=== PATIENT | male | born 1965 | race Caucasian/White ===

== ENCOUNTER 2019-05-05 04:36 | Emergency (ER) | payer SELFPAY ==
[~2019-05-05] VITALS: Ht 175 cm; Wt 113.0 kg
[2019-05-05] MEDS ORDERED: ASPIRIN 81 MG CHEW (CHILDREN'S ASA) PO ONE (05:00)
[2019-05-05 05:04] LABS: BASOPHILS % (AUTO) 0 % (0-10); EOSINOPHILS # (AUTO) 0.1 10^3/uL (0.0-0.3); EOSINOPHILS % (AUTO) 1 % (0-10); HEMATOCRIT 45 % (40-54); HEMOGLOBIN 15.1 G/DL (13.3-17.7); LYMPHOCYTES # (AUTO) 1.8 X 10^3 (1.0-4.0); LYMPHOCYTES % (AUTO) 39 % (12-44); MEAN CORPUSCULAR HEMOGLOBIN 32 PG (25-34); MEAN CORPUSCULAR HGB CONC 34 G/DL (32-36); MEAN CORPUSCULAR VOLUME 95 FL (80-99); MEAN PLATELET VOLUME 8.4 FL (7.4-10.4); MONOCYTES # (AUTO) 0.5 X 10^3 (0.0-1.0); MONOCYTES % (AUTO) 11 % (0-12); NEUTROPHILS # (AUTO) 2.2 X 10^3 (1.8-7.8); NEUTROPHILS % (AUTO) 48 % (42-75); PLATELET COUNT 178 10^3/uL (130-400); RED CELL DISTRIBUTION WIDTH 13.7 % (10.0-14.5); WHITE BLOOD COUNT 4.6 10^3/uL (4.3-11.0)
--- NOTE | 2019-05-05 05:14 | ED Chest Pain ---
General Chief Complaint: Chest Pain Stated Complaint: CHEST PAIN Source: patient Exam Limitations: no limitations (TAYLOR GREGORY MD) History of Present Illness Date Seen by Provider: May 05, 2019 Time Seen by Provider: 04:41 Initial Comments Here with report of chest pain that is central but also in the left upper order and left lateral abdominal area. Has nausea but no vomiting. No report of blood in his vomit or stool. Drinks about a pint of whiskey every 2 weeks. Does smoke cigarettes. Is having intermittent shortness of breath. Never had pain like this before. Timing/Duration: getting worse, changing over time, intermittent, 1-2 days Severity/Quality: moderate, pressure Location: central Radiation: other Activities at Onset: none (abdomen) Prior CP/Workup: no prior chest pain Modifying Factors: improves with oxygen ASA po NET REPAIRER: No NTG SL NET REPAIRER: Yes Associated Symptoms: No back pain, No fever/chills; nausea/vomiting, shortness of breath, weakness (TAYLOR GREGORY MD) Allergies and Home Medications Allergies Coded Allergies: Influenza Virus Vaccines (Verified Allergy, Unknown, 05/05/19) Penicillins (Verified Allergy, Unknown, 05/05/19) Patient Home Medication List Home Medication List Reviewed: Yes (TAYLRO GREGORY MD) Review of Systems Review of Systems Constitutional: see HPI; No chills, No fever EENTM: No Symptoms Reported Respiratory: See HPI Cardiovascular: See HPI, Chest Pain; Denies Edema, Denies Irregular Heart Rate Gastrointestinal: See HPI, Abdominal Pain; Denies Diarrhea Genitourinary: No Symptoms Reported Musculoskeletal: muscle pain; No muscle stiffness Skin: no symptoms reported Psychiatric/Neurological: No Symptoms Reported Endocrine: No Symptoms Reported (TAYLOR GREGORY MD) All Other Systems Reviewed Negative Unless Noted: Yes (TAYLOR GREGORY MD) Past [facility] Hx Past Med/Social Hx: Reviewed Nursing Past Med/Soc Hx (TAYLOR GREGORY MD) Patient Social History Alcohol Use: Occasionally Uses Alcohol Beverage of Choice: Whiskey Smoking Status: Current Everyday Smoker (TAYLOR GREGORY MD) Past Medical History Surgeries: No Cardiac: Yes Hypertension Neurological: No Genitourinary: No Gastrointestinal: No Cancer: No (TAYLOR GREGORY MD) Family Medical History No Pertinent Family Hx (TAYLOR GREGORY MD) Physical Exam Vital Signs Vital Signs - First Documented 05/05/19 04:36 Temp 37.1 Pulse 77 Resp 20 B/P (MAP) 150/92 (111) O2 Delivery Room Air (JACOB LUCIO MD) Vital Signs Capillary Refill : (TAYLOR GREGORY MD) Height, Weight, BMI Height: '" Weight: lbs. oz. kg; BMI Method: General Appearance: No Apparent Distress, WD/WN HEENT: PERRL/EOMI, Pharynx Normal Neck: Non Tender, Supple Respiratory: Lungs Clear, Normal Breath Sounds Cardiovascular: Regular Rate, Rhythm, No Edema, No Gallop, No Murmur Gastrointestinal: Soft, Tenderness (left upper quadrant, left lateral quadrant, epigastric pain) Extremity: Normal Range of Motion, Non Tender Neurologic/Psychiatric: Alert, Oriented x3 Skin: Normal Color, Warm/Dry (TAYLOR GREGORY MD) Progress/Results/Core Measures Results/Orders Lab Results Laboratory Tests Test 05/05/19 04:57 05/05/19 07:09 Range/Units White Blood Count 4.6 4.3-11.0 10^3/uL Red Blood Count 4.69 4.35-5.85 10^6/uL Hemoglobin 15.1 13.3-17.7 G/DL Hematocrit 45 40-54 % Mean Corpuscular Volume 95 80-99 FL Mean Corpuscular Hemoglobin 32 25-34 PG Mean Corpuscular Hemoglobin Concent 34 32-36 G/DL Red Cell Distribution Width 13.7 10.0-14.5 % Platelet Count 178 130-400 10^3/uL Mean Platelet Volume 8.4 7.4-10.4 FL Neutrophils (%) (Auto) 48 42-75 % Lymphocytes (%) (Auto) 39 12-44 % Monocytes (%) (Auto) 11 0-12 % Eosinophils (%) (Auto) 1 0-10 % Basophils (%) (Auto) 0 0-10 % Neutrophils # (Auto) 2.2 1.8-7.8 X 10^3 Lymphocytes # (Auto) 1.8 1.0-4.0 X 10^3 Monocytes # (Auto) 0.5 0.0-1.0 X 10^3 Eosinophils # (Auto) 0.1 0.0-0.3 10^3/uL Basophils # (Auto) 0.0 0.0-0.1 10^3/uL Prothrombin Time 12.2 12.2-14.7 SEC INR Comment 0.9 0.8-1.4 Activated Partial Thromboplast Time 40 H 24-35 SEC D-Dimer 0.37 0.00-0.49 UG/ML Sodium Level 144 135-145 MMOL/L Potassium Level 4.1 3.6-5.0 MMOL/L Chloride Level 109 H 98-107 MMOL/L Carbon Dioxide Level 22 21-32 MMOL/L Anion Gap 13 5-14 MMOL/L Blood Urea Nitrogen 16 7-18 MG/DL Creatinine 0.88 0.60-1.30 MG/DL Estimat Glomerular Filtration Rate > 60 BUN/Creatinine Ratio 18 Glucose Level 99 70-105 MG/DL Calcium Level 8.8 8.5-10.1 MG/DL Corrected Calcium 8.4 L 8.5-10.1 MG/DL Magnesium Level 2.5 H 1.6-2.4 MG/DL Total Bilirubin 0.2 0.1-1.0 MG/DL Aspartate Amino Transf (AST/SGOT) 24 5-34 U/L Alanine Aminotransferase (ALT/SGPT) 21 0-55 U/L Alkaline Phosphatase 67 40-136 U/L Myoglobin 29.4 10.0-92.0 NG/ML Troponin I < 0.028 < 0.028 <0.028 NG/ML Total Protein 7.2 6.4-8.2 GM/DL Albumin 4.5 3.2-4.5 GM/DL Amylase Level 78 25-125 U/L Lipase 48 8-78 U/L (JACOB LUCIO MD) Medications Given in ED Current Medications Medications Dose Ordered Sig/Yany Route Start Time Stop Time Status Last Admin Dose Admin Aspirin 324 mg ONCE ONCE PO 05/05/19 05:00 05/05/19 05:01 DC 05/05/19 04:59 324 MG Iohexol 100 ml ONCE ONCE IV 05/05/19 06:45 05/05/19 06:46 DC 05/05/19 06:33 100 ML Sodium Chloride 100 ml ONCE ONCE IV 05/05/19 06:45 05/05/19 06:46 DC 05/05/19 06:33 80 ML Sodium Chloride 1,000 ml @ 0 mls/hr Q0M ONCE IV 05/05/19 06:39 05/05/19 06:40 DC 05/05/19 06:51 999 MLS/HR (JACOB LUCIO MD) Vital Signs/I&O 05/05/19 05/05/19 04:36 04:36 Temp 37.1 Pulse 77 Resp 20 B/P (MAP) 150/92 (111) O2 Delivery Room Air (JACOB LUCIO MD) Progress Progress Note : Progress Note Seen and evaluated. IV, labs, EKG and chest x-ray ordered. ASA 324 mg by mouth. We will hold the nitros as that did not seem to help earlier. EKG does not show any significant abnormality. Monitor patient. CT abdomen and pelvis with contrast ordered due to pain and feeling of mass especially on the left side. Monitor patient. 0640: Normal saline 1 L bolus. Initial evaluation with respect to labs is negative. CT pending. Initial troponin negative as well as d-dimer. We will go ahead and recheck troponin at the 2 are marked for rule out. Patient is wanting to go home and is overall feeling better. Care transferred to Dr. Lucio pending final CT reading and repeat troponin. (TAYLOR GREGORY MD) Progress Note : Time: 08:19 Progress Note Patient's repeat troponin was normal. The patient wants to follow-up with Dr. Ramon Rivera at [facility] in [place]. I recommended the patient return if he had any further problems or questions. I asked that he call Dr. Rivera's office on Monday for close follow-up. (JACOB LUCIO MD) Initial ECG Impression Date: May 05, 2019 Initial ECG Impression Time: 04:44 Initial ECG Rate: 65 Initial ECG Rhythm: Normal Sinus Initial ECG Impression: Nonspecific Changes Comment Sinus rhythm with normal axis. No evidence of ST elevation GA. No previous available for comparison. Interpreted by me. (TAYLOR GREGORY MD) Diagnostic Imaging Diagonstic Imaging: Xray Plain Films/CT/US/NM/MRI: chest Comments No acute findings. Reviewed: Reviewed by Me Diagonstic Imaging: CT Plain Films/CT/US/NM/MRI: abdomen, pelvis (TAYLOR GREGORY MD) Departure Impression Primary Impression: Chest pain Qualified Codes: R07.9 - Chest pain, unspecified Disposition: HOME, SELF-CARE Condition: Improved Departure-Patient Inst. Decision time for Depature: 08:22 (JACOB LUCIO MD) Patient Instructions: Chest Pain Add. Discharge Instructions: Close follow-up with Dr. Ramon Rivera at [facility] in [place]. Please call his office Monday morning for close follow-up. Nitroglycerin under your tongue if chest pain recurs. Come back to the emergency department if you have any further episodes of chest pain. All discharge instructions reviewed with patient and/or family. Voiced understanding. Scripts Nitroglycerin (Nitroglycerin) 0.4 Mg Tab.subl 0.4 MG SL UD for Chest Pain, #60 TAB Prov: JACOB LUCIO MD 05/05/19 TAYLOR GREGORY MD May 05, 2019 05:14 POSJACOB LUCIO MD May 05, 2019 08:24 POS
[2019-05-05 05:15] LABS: INR 0.9 (0.8-1.4); PROTHROMBIN TIME PATIENT 12.2 SEC (12.2-14.7)
[2019-05-05 05:22] LABS: ALANINE AMINOTRANSFERASE 21 U/L (0-55); ALBUMIN 4.5 GM/DL (3.2-4.5); ALKALINE PHOSPHATASE 67 U/L (40-136); AMYLASE 78 U/L (25-125); BILIRUBIN,TOTAL 0.2 MG/DL (0.1-1.0); BUN/CREATININE RATIO 18; CALCIUM 8.8 MG/DL (8.5-10.1); CARBON DIOXIDE 22 MMOL/L (21-32); CHLORIDE 109 MMOL/L (98-107); CREATININE SERUM 0.88 MG/DL (0.60-1.30); GFR ESTIMATED > 60; GLUCOSE 99 MG/DL (70-105); MAGNESIUM 2.5 MG/DL (1.6-2.4); POTASSIUM 4.1 MMOL/L (3.6-5.0); SODIUM 144 MMOL/L (135-145); TOTAL PROTEIN 7.2 GM/DL (6.4-8.2)
[2019-05-05 05:23] LABS: LIPASE 48 U/L (8-78)
[2019-05-05] MEDS ORDERED: NS IV 1000 ML 1,000 ML IV ONE (06:39)
[2019-05-05] MEDS ORDERED: HOLD METFORMIN - RECEIVED CONTRAST 20 ML VIAL IV SCH (06:45)
[2019-05-05] MEDS ORDERED: NS 100 ML (IVPB) BAG IV ONE (06:45)
[2019-05-05] MEDS ORDERED: IOHEXOL 350 MG/ML 100 ML (OMNIPAQUE 350) VIAL IV ONE (06:45)
--- NOTE | 2019-05-05 06:55 | NUR ---
DR GREGORY IN ROOM TALKING TO THE PT ABOUT THE NEED NOT TO CUSS AT THE NURSES.
--- NOTE | 2019-05-05 06:55 | NUR ---
ASSUMED CARE OF PT.
--- NOTE | 2019-05-05 07:17 | Diagnostic Imaging Report ---
Clinical indications: Patient with abdominal pain and chest pain. Exam: CT scan of the abdomen and pelvis performed with 100 mL of Omnipaque 350 IV contrast. Coronal and sagittal reformatted images are created. Auto Exposure Controls were utilized during the CT exam to meet ALARA standards for radiation dose reduction. Comparison: None. Findings: There is mild atelectasis involving the posterior aspect of the right lung base. There is sclerosis and curvilinear opacities with lucency involving the right femoral head region with mild subchondral collapse related to AVN. There is also slight sclerosis of the upper anterior aspect of the left femoral head which may represent mild changes of AVN. There is severe joint space narrowing of the right hip with hypertrophic spurs involving the right hip related to secondary degenerative changes. There are lumbar spine degenerative spurs seen. The liver, spleen, pancreas, gallbladder, adrenal glands are unremarkable. There is a 2 mm nonobstructive stone involving the inferior pole of the left kidney which is best seen on coronal reformatted sequences. Otherwise, both kidneys are unremarkable with no other stones, hydronephrosis, or mass. There is no intra-abdominal free air or free fluid. Bladder is fluid-filled and unremarkable. There is diverticulosis involving the sigmoid colon and descending colon with no CT evidence of diverticulitis. Appendix is unremarkable. There is no intra-abdominal lymphadenopathy. There is no intestinal obstruction. The extra abdominal and extrapelvic soft tissue structures are unremarkable. Impression: 1: There is no CT evidence of acute abdominal or pelvic process. 2: Nonobstructive left nephrolithiasis. 3: Diverticulosis with no CT evidence of diverticulitis. 4: Bilateral hip findings concerning for avascular necrosis (right side more than the left). There are also severe degenerative changes of the right hip. Dictated by: Dictated on workstation # [id number]
--- NOTE | 2019-05-05 07:51 | Diagnostic Imaging Report ---
CLINICAL INDICATION: Patient with chest pain. EXAM: Portable chest x-ray upright view. COMPARISONS: None. FINDINGS: Lungs/pleura: There is minimal atelectasis in right lung base. Otherwise, lungs are clear. There is no pneumothorax. There is no pleural effusion. Mediastinum: Unremarkable. Pulmonary vasculature: Unremarkable. Heart: Unremarkable. Bones/extrathoracic soft tissue: There are degenerative spurs involving the thoracic spine. IMPRESSION: Minimal right lung base atelectasis. Otherwise, there is no radiographic evidence of acute cardiopulmonary process. Dictated by: Dictated on workstation # [id number]
[2019-05-05] MEDS ORDERED: NITR0.4T39 SL (08:24)
[2019-05-05 08:29] VITALS: BP 138/91
--- OUTSIDE RECORDS SUMMARY | 2019-05-30 17:00 | XMS REPORT | Continuity of Care Document ---
Author Organization Unknown Address Unknown Phone Unavailable Allergies Active Description Code Type Severity Reaction Onset Reported/Identified Relationship to Patient Clinical Status Yes Influenza Virus Vaccines [id number] Drug Allergy Unknown N/A 05/05/2019 Yes Penicillins [id number] Drug Aller gy Unknown N/A 05/05/2019 Medications There is no data. Problems Date Dx Coded Attending Type Code Diagnosis Diagnosed By 05/05/2019 JACOB MOYA MD Ot F17.200 NICOTINE DEPENDENCE, UNSPECIFIED, UNCOMP 05/05/2019 JACOB MOYA MD Ot I10 ESSENTIAL (PRIMARY) HYPERTENSION 05/05/2019 JACOB MOYA MD Ot R07. 89 OTHER CHEST PAIN 05/05/2019 JACOB MOYA MD Ot R07. 9 CHEST PAIN, UNSPECIFIED 05/05/2019 JACOB MOYA MD Ot Z88. 0 ALLERGY STATUS TO PENICILLIN 05/05/2019 JACOB MOYA MD Ot Z88. 7 ALLERGY STATUS TO SERUM AND VACCINE STAT 05/08/2019 JACOB MOYA MD Ot F17.200 NICOTINE DEPENDENCE, UNSPECIFIED, UNCOMP 05/08/2019 JACOB MOYA MD Ot I10 ESSENTIAL (PRIMARY) HYPERTENSION 05/08/2019 JACOB MOYA MD Ot R07. 89 OTHER CHEST PAIN 05/08/2019 JACOB MOYA MD Ot R07. 9 CHEST PAIN, UNSPECIFIED 05/08/2019 JACOB MOYA MD Ot Z88. 0 ALLERGY STATUS TO PENICILLIN 05/08/2019 JACOB MOYA MD Ot Z88. 7 ALLERGY STATUS TO SERUM AND VACCINE STAT Procedures There is no data. Results Test Result Range Complete blood count (CBC) with automate d white blood cell (WBC) differential - 05/05/19 04:57 Blood leukocytes automated count (number/volume) 4.6 10*3/uL 4.3-11.0 Blood erythrocytes automated count (number/volume) 4.69 10*6/uL 4.35-5.85 Venous blood hemoglobin measurement (mass/volume) 15.1 g/dL 13.3-17.7 Blood hematocrit (volume fraction) 45 % 40-54 Automated erythrocyte mean corpuscular volume 95 [ foz_us] 80-99 Automated erythrocyte mean corpuscular h emoglobin (mass per erythrocyte) 32 pg 25-34 Automated erythrocyte mean corpuscular h emoglobin concentration measurement (mass/volume) 34 g/dL 32-36 Automated erythrocyte distribution width ratio 13. 7 % 10.0- 14.5 Automated blood platelet count (count/volume) 178 10*3/uL 130-400 Automated blood platelet mean volume measurement 8.4 [foz_us] 7.4-10.4 Automated blood neutrophils/100 leukocytes 48 % 42-75 Automated blood lymphocytes/100 leukocytes 39 % 12-44 Blood monocytes/100 leukocytes 11 % 0-12 Automated blood eosinophils/100 leukocytes 1 % 0-10 Automated blood basophils/100 leukocytes 0 % 0-10 Blood neutrophils automated count (number/volume) 2.2 10*3 1.8-7.8 Blood lymphocytes automated count (number/volume) 1.8 10*3 1.0-4.0 Blood monocytes automated count (number/volume) 0. 5 10*3 0.0-1.0 Automated eosinophil count 0.1 10*3/uL 0 .0-0.3 Automated blood basophil count (count/volume) 0.0 10*3/uL 0.0-0.1 PT panel in platelet poor plasma by coag ulation assay - 05/05/19 04:57 Prothrombin time (PT) in platelet poor plasma by coagu lation assay 12.2 s 12.2-14.7 INR in platelet poor plasma or blood by coagulation as say 0.9 0.8-1.4 Activated partial thromboplastin time (a PTT) in platelet poor plasma bycoagulation assay - 05/05/19 04:57 Activated partial thromboplastin time (a PTT) in platelet poor plasma bycoagulation assay 40 s 24-35 Fibrin D-dimer FEU measurement in platel et poor plasma (mass/volume) - 05/05/19 04:57 Fibrin D-dimer FEU measurement in platelet poor plasma (mass/volume) 0.37 ug/mL 0.00-0.49 Comprehensive metabolic panel - 05/05/19 04:57 Serum or plasma sodium measurement (moles/volume) 144 mmol/L 135-145 Serum or plasma potassium measurement (moles/volume) 4.1 mmol/L 3.6-5.0 Serum or plasma chloride measurement (moles/volume) 109 mmol/L 98-107 Carbon dioxide 22 mmol/L 21-32 Serum or plasma anion gap determination (moles/volume) 13 mmol/L 5-14 Serum or plasma urea nitrogen measurement (mass/volume ) 16 mg/dL 7-18 Serum or plasma creatinine measurement (mass/volume) 0.88 mg/dL 0.60-1.30 Serum or plasma urea nitrogen/creatinine mass ratio 18 NRG Serum or plasma creatinine measurement w ith calculation of estimated glomerular filtration rate > NRG Serum or plasma glucose measurement (mass/volume) 99 mg/dL 70-105 Serum or plasma calcium measurement (mass/volume) 8.8 mg/dL 8.5-10.1 Serum or plasma total bilirubin measurement (mass/volu me) 0.2 mg/dL 0.1-1.0 Serum or plasma alkaline phosphatase farrah surement (enzymatic activity/volume) 67 U/L 40-136 Serum or plasma aspartate aminotransfera se measurement (enzymatic activity/volume) 24 U/L 5-34 Serum or plasma alanine aminotransferase measurement (enzymatic activity/volume) 21 U/L 0-55 Serum or plasma protein measurement (mass/volume) 7.2 g/dL 6.4-8.2 Serum or plasma albumin measurement (mass/volume) 4.5 g/dL 3.2-4.5 CALCIUM CORRECTED 8.4 mg/dL 8.5-10.1 Magnesium - 05/05/19 04:57 Magnesium 2.5 mg/dL 1.6-2.4 Myoglobin, serum - 05/05/19 04:57 Myoglobin, serum 29.4 ng/mL 10.0-92.0 Serum or plasma troponin i.cardiac measu rement (mass/volume) - 05/05/19 04:57 Serum or plasma troponin i.cardiac measurement (mass/v olume) < ng/mL <0.028 Serum or plasma amylase measurement (enz ymatic activity/volume) - 05/05/19 04:57 Serum or plasma amylase measurement (enzymatic activit y/volume) 78 U/L 25-125 Lipase - 05/05/19 04:57 Lipase 48 U/L 8-78 Serum or plasma troponin i.cardiac measu rement (mass/volume) - 05/05/19 07:09 Serum or plasma troponin i.cardiac measurement (mass/v olume) < ng/mL <0.028 Encounters ACCT No. Visit Date/Time Discharge Status Pt. Type Provider Facility Loc./Unit Complaint [id number] 03/14/2019 14:55:00 03/14/2019 23:59: 59 CLS Outpatient [facility] [id number] 05/05/2019 04:38:00 019 08:29:00 DIS Emergency NITA TRUONG, JACOB [facility] ER CHEST PAIN
== END 2019-05-05 08:29 | disposition home or self-care (01) ==
LOC: ER 04:38
DX: R07.89 Other chest pain (principal); I10 Essential (primary) hypertension; F17.200 Nicotine dependence, unspecified, uncomplicated; Z88.7 Allergy status to serum and vaccine; Z88.0 Allergy status to penicillin
CPT/HCPCS: 36415; 71045; 74177; 80053; 82150; 83690; 83735; 83874; 84484; 85025; 85379; 85610; 85730; 93005; 93041; 96360

== ENCOUNTER 2022-08-15 02:51 | Emergency (ER) | payer SELFPAY ==
[~2022-08-15] VITALS: Ht 182 cm; Wt 117.9 kg
[~2022-08-15 02:51] MED LIST: NITR0.4T39 SL
[2022-08-15 03:08] LABS: BASOPHILS # (AUTO) 0.1 10^3/uL (0.0-0.1); BASOPHILS % (AUTO) 1 % (0-10); EOSINOPHILS # (AUTO) 0.1 10^3/uL (0.0-0.3); EOSINOPHILS % (AUTO) 1 % (0-10); HEMATOCRIT 47 % (40-54); HEMOGLOBIN 16.4 g/dL (13.3-17.7); LYMPHOCYTES # (AUTO) 2.1 10^3/uL (1.0-4.0); LYMPHOCYTES % (AUTO) 39 % (12-44); MEAN CORPUSCULAR HEMOGLOBIN 32 pg (25-34); MEAN CORPUSCULAR HGB CONC 35 g/dL (32-36); MEAN CORPUSCULAR VOLUME 92 fL (80-99); MEAN PLATELET VOLUME 8.6 fL (9.0-12.2); MONOCYTES # (AUTO) 0.5 10^3/uL (0.0-1.0); MONOCYTES % (AUTO) 9 % (0-12); NEUTROPHILS # (AUTO) 2.6 10^3/uL (1.8-7.8); NEUTROPHILS % (AUTO) 49 % (42-75); PLATELET COUNT 194 10^3/uL (130-400); WHITE BLOOD COUNT 5.2 10^3/uL (4.3-11.0)
[2022-08-15] MEDS ORDERED: ONDANSETRON 4 MG/2 ML (SDV) Z0FRAN IVP ONE (03:15)
[2022-08-15] MEDS ORDERED: LIDOCAINE 2% VISCOUS 15 ML UDC PO ONE (03:15)
[2022-08-15] MEDS ORDERED: ANTACID SUSP 30 ML UDC (MYLANTA) ONE (03:18)
[2022-08-15 03:19] LABS: ALBUMIN 4.2 GM/DL (3.2-4.5)
[2022-08-15 03:20] LABS: CHLORIDE 109 MMOL/L (98-107); SODIUM 141 MMOL/L (135-145)
[2022-08-15 03:21] LABS: CALCIUM 8.9 MG/DL (8.5-10.1)
[2022-08-15 03:22] LABS: GLUCOSE 138 MG/DL (70-105); TOTAL PROTEIN 7.5 GM/DL (6.4-8.2)
[2022-08-15 03:23] LABS: CARBON DIOXIDE 18 MMOL/L (21-32); FIBRIN DEGRADATION PRODUCTS 0.33 UG/ML (0.00-0.49); INR 0.9 (0.8-1.4); PROTHROMBIN TIME PATIENT 12.4 SEC (12.2-14.7)
[2022-08-15 03:24] LABS: BILIRUBIN,TOTAL 0.3 MG/DL (0.1-1.0)
[2022-08-15 03:25] LABS: ALKALINE PHOSPHATASE 87 U/L (40-136)
[2022-08-15 03:26] LABS: GFR ESTIMATED 78
[2022-08-15 03:27] LABS: BUN/CREATININE RATIO 13
[2022-08-15 03:28] LABS: MAGNESIUM 2.1 MG/DL (1.6-2.4)
[2022-08-15 03:29] LABS: ALANINE AMINOTRANSFERASE 31 U/L (0-55)
[2022-08-15] MEDS ORDERED: ANTACID SUSP 30 ML UDC (MYLANTA) PO ONE (04:00)
--- NOTE | 2022-08-15 04:17 | ED Chest Pain ---
General Chief Complaint: Chest Pain Stated Complaint: CP Nursing Triage Note: PATIENT REPORTS HAVING MID-RT SIDED CHEST PAIN TONIGHTS. STATES SOB AND COUGH. Source: patient Exam Limitations: no limitations History of Present Illness Date Seen by Provider: Aug 15, 2022 Time Seen by Provider: 02:54 Initial Comments This 56-year-old man is brought to the emergency room via EMS with complaints of right sided chest pain, SOA and a couple brief coughing fits. He also has some tenderness in the epigastric region. He denies any fever. Onset of pain was somewhere around 2330. He has no known cardiac pathology. He takes no medications. He also complains of some right lower quadrant abdominal pain for a few weeks that radiates down toward the right scrotum. This started after he was doing some lifting on a trailer. Pain in the right chest was reproducible with palpation for EMS. Allergies and Home Medications Allergies Coded Allergies: Influenza Virus Vaccines (Verified Allergy, Unknown, 05/05/19) Penicillins (Verified Allergy, Unknown, 05/05/19) Patient Home Medication List Home Medication List Reviewed: Yes Nitroglycerin (Nitroglycerin) 0.4 Mg Tab.subl, 0.4 MG SL UD Prescribed by: JACOB MOYA MD on 05/05/19 0824 Review of Systems Review of Systems Constitutional: no symptoms reported EENTM: No Symptoms Reported Respiratory: See HPI Cardiovascular: No Symptoms Reported Gastrointestinal: See HPI Genitourinary: No Symptoms Reported Musculoskeletal: see HPI Skin: no symptoms reported Psychiatric/Neurological: No Symptoms Reported Endocrine: No Symptoms Reported Hematologic/Lymphatic: No Symptoms Reported Past Dseitem-Blhtiz-Hrwjfr Hx Immunizations Up To Date Influenza Vaccine Up-to-Date: Yes; Up-to-Date Past Medical History Surgeries: No Respiratory: No Cardiac: Yes Hypertension Neurological: No Genitourinary: No Gastrointestinal: No Musculoskeletal: No Endocrine: No HEENT: No Cancer: No Psychosocial: No Integumentary: No Family Medical History No Pertinent Family Hx Physical Exam Vital Signs Vital Signs - First Documented 08/15/22 02:53 Pulse 85 Resp 20 B/P (MAP) 150/100 (117) Pulse Ox 95 O2 Delivery Room Air Capillary Refill : Less Than 3 Seconds Height, Weight, BMI Height: '" Weight: lbs. oz. kg; 35.00 BMI Method: General Appearance: WD/WN, Anxious, Obese HEENT: PERRL/EOMI, Normal ENT Inspection Neck: Normal Inspection; No JVD Respiratory: Chest Non Tender, Lungs Clear, Normal Breath Sounds, No Accessory Muscle Use, Other (No wheezing or prolonged expiratory phase with forced expiration) Cardiovascular: Regular Rate, Rhythm, No Edema, No Murmur Gastrointestinal: Normal Bowel Sounds, Soft, Tenderness (Epigastric, mild in the right suprapubic region), Other (Obese abdomen) Genital/Rectal: Tenderness (Mild tenderness at the lower right inguinal canal without obvious hernia or skin changes) Extremity: Normal Inspection, No Pedal Edema Neurologic/Psychiatric: Alert, Oriented x3, No Motor/Sensory Deficits, auto mechanic apprentice II- XII Norm as Tested, Other (Slightly anxious) Skin: Normal Color Progress/Results/Core Measures Results/Orders Lab Results Laboratory Tests Test 08/15/22 02:56 08/15/22 04:47 Range/Units White Blood Count 5.2 4.3-11.0 10^3/uL Red Blood Count 5.15 4.30-5.52 10^6/uL Hemoglobin 16.4 13.3-17.7 g/dL Hematocrit 47 40-54 % Mean Corpuscular Volume 92 80-99 fL Mean Corpuscular Hemoglobin 32 25-34 pg Mean Corpuscular Hemoglobin Concent 35 32-36 g/dL Red Cell Distribution Width 12.5 10.0-14.5 % Platelet Count 194 130-400 10^3/uL Mean Platelet Volume 8.6 L 9.0-12.2 fL Immature Granulocyte % (Auto) 0 % Neutrophils (%) (Auto) 49 42-75 % Lymphocytes (%) (Auto) 39 12-44 % Monocytes (%) (Auto) 9 0-12 % Eosinophils (%) (Auto) 1 0-10 % Basophils (%) (Auto) 1 0-10 % Neutrophils # (Auto) 2.6 1.8-7.8 10^3/uL Lymphocytes # (Auto) 2.1 1.0-4.0 10^3/uL Monocytes # (Auto) 0.5 0.0-1.0 10^3/uL Eosinophils # (Auto) 0.1 0.0-0.3 10^3/uL Basophils # (Auto) 0.1 0.0-0.1 10^3/uL Immature Granulocyte # (Auto) 0.0 0.0-0.1 10^3/uL Prothrombin Time 12.4 12.2-14.7 SEC INR Comment 0.9 0.8-1.4 Activated Partial Thromboplast Time 39 H 24-35 SEC D-Dimer 0.33 0.00-0.49 UG/ML Sodium Level 141 135-145 MMOL/L Potassium Level 4.0 3.6-5.0 MMOL/L Chloride Level 109 H 98-107 MMOL/L Carbon Dioxide Level 18 L 21-32 MMOL/L Anion Gap 14 5-14 MMOL/L Blood Urea Nitrogen 14 7-18 MG/DL Creatinine 1.10 0.60-1.30 MG/DL Estimat Glomerular Filtration Rate 78 BUN/Creatinine Ratio 13 Glucose Level 138 H 70-105 MG/DL Calcium Level 8.9 8.5-10.1 MG/DL Corrected Calcium 8.7 8.5-10.1 MG/DL Magnesium Level 2.1 1.6-2.4 MG/DL Total Bilirubin 0.3 0.1-1.0 MG/DL Aspartate Amino Transf (AST/SGOT) 31 5-34 U/L Alanine Aminotransferase (ALT/SGPT) 31 0-55 U/L Alkaline Phosphatase 87 40-136 U/L Myoglobin 50.9 10.0-92.0 NG/ML Troponin I < 0.028 < 0.028 <0.028 NG/ML B-Type Natriuretic Peptide 64.0 <100.0 PG/ML Total Protein 7.5 6.4-8.2 GM/DL Albumin 4.2 3.2-4.5 GM/DL My Orders Orders - ORALIA VALENTINE MD Cbc With Automated Diff (08/15/22 03:02) Magnesium (08/15/22 03:02) Chest 1 View, Ap/Pa Only (08/15/22 03:02) Ekg Tracing (08/15/22 03:02) Comprehensive Metabolic Panel (08/15/22 03:02) Myoglobin Serum (08/15/22 03:02) Protime With Inr (08/15/22 03:02) Partial Thromboplastin Time (08/15/22 03:02) Monitor-Rhythm Ecg Trace Only (08/15/22 03:02) Lipid Panel (08/16/22 06:00) Ed Iv/Invasive Line Start (08/15/22 03:02) Bnp Oliver (08/15/22 03:02) Ondansetron Injection (Zofran Injectio (08/15/22 03:15) Lidocaine 2% Viscous 15 Ml (Xylocaine Vi (08/15/22 03:15) Fibrin Degradation Products (08/15/22 02:56) Troponin I Yue (08/15/22 02:56) Antacid Suspension (Mylanta Suspension (08/15/22 03:18) Antacid Suspension (Mylanta Suspension (08/15/22 04:00) Troponin I Yue (08/15/22 05:00) Medications Given in ED Current Medications Medications Dose Ordered Sig/Yany Route Start Time Stop Time Status Last Admin Dose Admin Al Hydrox/Mg Hydrox/Simethicone 30 ml STK-MED ONCE .ROUTE 08/15/22 03:18 08/15/22 03:22 DC 08/15/22 03:26 30 ML Lidocaine HCl 15 ml ONCE ONCE PO 08/15/22 03:15 08/15/22 03:16 DC 08/15/22 03:26 15 ML Ondansetron HCl 4 mg ONCE ONCE IVP 08/15/22 03:15 08/15/22 03:16 DC 08/15/22 03:25 4 MG Vital Signs/I&O 08/15/22 02:53 Pulse 85 Resp 20 B/P (MAP) 150/100 (117) Pulse Ox 95 O2 Delivery Room Air Blood Pressure Mean: 117 Progress Progress Note #1: Time: 04:45 Progress Note Patient was interviewed and examined. Initial work-up including CBC, CMP, troponin, magnesium, EKG, and chest x-ray was reviewed in its entirety by me. Additional work-up was unremarkable. A delta troponin is pending. Patient was treated with Zofran and GI cocktail with improvement. Progress Note #2: Time: 05:46 Progress Note Delta troponin was negative. Patient's pain was significantly improved after GI cocktail. He reported some residual pain with tenderness to touch around the right anterior costal margin. Pain seemed more atypical in nature. Discharge instructions were reviewed with patient. Pain seemed atypical in nature and likely, at least in part, GI in origin since it improved with GI cocktail. I did emphasize that his cardiac work-up is not complete with studies performed in the ER, and he needs to establish with a primary care provider soon as possible. Initial ECG Impression Date: Aug 15, 2022 Initial ECG Impression Time: 03:04 Initial ECG Rate: 81 Initial ECG Rhythm: Normal Sinus Initial ECG Intervals: Normal Initial ECG Impression: Normal Comment Normal sinus rhythm with no ST elevation or depression. No abnormal intervals or axis deviation. Diagnostic Imaging Diagonstic Imaging: Xray Plain Films/CT/US/NM/MRI: chest Comments Chest x-ray viewed by me. Report not yet available. There is basilar atelectasis without notable cardiomegaly, edema, or infiltrates. No significant change from prior. Rotation obscures interpretation a little. Departure Impression Primary Impression: Atypical chest pain Additional Impression: Epigastric pain Disposition: HOME, SELF-CARE Condition: Improved Departure-Patient Inst. Decision time for Depature: 05:25 Referrals: JACOB ASHRAF MD [facility]/ISHA MACIAS MD,LAURA FENG,LOCAL PHYSICIAN (PCP) Primary Care Physician JAKY ALVAREZ CHAD C MD SULLIVAN, WILLIAM J DO Patient Instructions: Abdominal Pain, Adult ED, Chest Pain Add. Discharge Instructions: Establish with a primary care provider soon as possible. Although there was no specific evidence of heart disease or heart attack during your ER work-up, the ER does not provide a complete cardiac work-up. You should discuss this with a primary care provider soon as possible. Further work-up such as a stress test, referral to a career developer, etc. may be appropriate at the discretion of your primary care doctor. Your pain may be caused in part by acid reflux or gastritis (inflammation of the stomach lining). For this reason you should take Prilosec (omeprazole) 20 mg daily. Also avoid the following: Eating large meals, eating close to bedtime, caffeine, carbonation, chocolate, citrus fruits and juices, tomato products, mints, alcohol, tobacco, NSAID medications such as ibuprofen or naproxen, spicy foods, fatty/greasy foods, and anything else you know irritates your stomach. You should take enteric-coated aspirin (aspirin EC) 81 mg daily until you can discuss with a primary care provider. Work toward quitting smoking as rapidly as possible. You may take Tylenol (acetaminophen) up to 1000 mg every 6 hours as needed for pain. Return to the emergency room if you have worsening symptoms despite following these instructions. A list of primary care providers is below for your convenience. All discharge instructions reviewed with patient and/or family. Voiced u [email or web address]. ORALIA VALENTINE MD Aug 15, 2022 04:17
[2022-08-15 06:00] VITALS: BP 146/98
--- NOTE | 2022-08-15 06:25 | Diagnostic Imaging Report ---
INDICATION: Chest pain Portable chest 3:20 AM Heart size and pulmonary vascularity are normal. Lungs are clear. There are no effusions or pneumothoraces. IMPRESSION: Negative chest Dictated by: Dictated on workstation # [id number]
== END 2022-08-15 06:00 | disposition home or self-care (01) ==
LOC: EDUNIT# 02:51 → ER 02:52
DX: R07.89 Other chest pain (principal); R10.13 Epigastric pain; R10.31 Right lower quadrant pain; N50.82 Scrotal pain; J98.11 Atelectasis; Z28.310 Unvaccinated for COVID-19; X50.0XXA Overexertion from strenuous movement or load, initial encounter
CPT/HCPCS: 36415; 71045; 80053; 83735; 83874; 83880; 84484; 85025; 85379; 85610; 85730; 93005; 93041